=== PATIENT | female | born 1990 | race Caucasian/White ===

== ENCOUNTER 2017-12-16 15:38 | Emergency (ER) | payer MEDICAID ==
[2017-12-16 16:02] VITALS: BP 125/80; PULSE 79; RESP 18; TEMP 97.5; O2SAT 99
[2017-12-16 17:45] LABS: AUTOMATED NEUTROPHIL # 2.2 TH/MM3 (1.8-7.7); BASOPHIL % 0.7 % (0.0-2.0); EOSINOPHIL # 0.1 TH/MM3 (0-0.4); EOSINOPHIL % 3.4 % (0.0-4.0); HEMATOCRIT 42.1 % (35.0-46.0); HEMOGLOBIN 14.3 GM/DL (11.6-15.3); LYMPH % 36.3 % (9.0-44.0); LYMPHOCYTE # 1.6 TH/MM3 (1.0-4.8); MEAN CELL VOLUME 90.9 FL (80.0-100.0); MEAN CORPUSCULAR HEMOGLOBIN 30.9 PG (27.0-34.0); MEAN PLATELET VOLUME 8.9 FL (7.0-11.0); MONO % 8.1 % (0.0-8.0); MONOCYTE # 0.4 TH/MM3 (0-0.9); NEUT % 51.5 % (16.0-70.0); PLATELET COUNT 197 TH/MM3 (150-450); RED BLOOD COUNT 4.63 MIL/MM3 (4.00-5.30); RED CELL DISTRIBUTION WIDTH 13.8 % (11.6-17.2); WHITE BLOOD COUNT 4.3 TH/MM3 (4.0-11.0)
[2017-12-16 18:10] LABS: BILIRUBIN, URINE NEG (NEG); BLOOD, URINE MOD (NEG); GLUCOSE,URINE NEG (NEG); KETONE, URINE TRACE mg/dL (NEG); MUCUS URINE MANY /lpf (OCC); NITRITE,URINE NEG (NEG); SQUAMOUS EPITHELIAL CELL URINE 12 /hpf (0-5); URINE COLOR YELLOW (YELLW/STRAW); URINE LEUKOCYTE ESTERASE TRACE (NEG)
[2017-12-16 18:18] LABS: ALBUMIN 4.2 GM/DL (3.4-5.0); ALT (GPT) 14 U/L (10-53); AST (GOT) 12 U/L (15-37); BICARBONATE 28.3 MEQ/L (21.0-32.0); BLOOD UREA NITROGEN 9 MG/DL (7-18); CALCIUM 8.9 MG/DL (8.5-10.1); CHLORIDE 106 MEQ/L (98-107); CREATININE 0.81 MG/DL (0.50-1.00); GLOMERULAR FILTRATION RATE 86 ML/MIN (>89); GLUCOSE,RANDOM 83 MG/DL (74-106); SODIUM (NA) 141 MEQ/L (136-145)
[2017-12-16 18:22] LABS: ALKALINE PHOSPHATASE 71 U/L (45-117); TOTAL BILIRUBIN ADULT 0.3 MG/DL (0.2-1.0); TOTAL PROTEIN 7.7 GM/DL (6.4-8.2)
[2017-12-16] MEDS ORDERED: ZOFR4TAB3 SL (20:51)
[2017-12-16] MEDS ORDERED: NORC5TAB PO (20:51)
--- NOTE | 2017-12-16 20:52 | PD ---
HPI Chief Complaint: Medical Clearance Time Seen by Provider: 20:41 Travel History International Travel<30 days: No Contact w/Intl Traveler<30days: No Traveled to known affect area: No History of Present Illness HPI 27-year-old female complains of vaginal bleeding. Patient is 3 para 2. Last menstruation period November 13. Patient started having vaginal bleeding 2 days ago. Patient was seen at [facility] 2 days ago and was diagnosed with miscarriage. Patient was advised to follow with local physician. Patient states that she still has persistent vaginal bleeding since the visit. Patient is not sure of her blood type. Patient was not given program at [facility]. Patient states that she does not have any body locally for follow-up. Patient denies any headache. Patient denies any chest pain or shortness of breath. Patient denies any abdominal pelvic pain. Patient denies any fever chills. PFSH Past Medical History Anemia: Yes ?: Not LMP: 11/13/17 Past Surgical History Section: Yes Social History Alcohol Use: Yes (rarely) Tobacco Use: Yes Substance Use: No Allergies-Medications (Allergen,Severity, Reaction): Coded Allergies: sumatriptan (Verified Allergy, Unknown, 12/16/17) Reported Meds & Prescriptions Reported Meds & Active Scripts Active Reported Leland (Hydrocodone-Acetaminophen) 5 Mg-325 Mg Tab 1 Tab PO Q6H PRN Zofran Odt (Ondansetron Odt) 4 Mg Tab 4 Mg SL DIRECTED Review of Systems General / Constitutional: No: Fever Eyes: No: Visual changes HENT: No: Headaches Cardiovascular: No: Chest Pain or Discomfort Respiratory: No: Shortness of Breath Gastrointestinal: No: Abdominal Pain Genitourinary: Positive: Vaginal Bleeding, No: Dysuria Musculoskeletal: No: Pain Skin: No Rash Neurologic: No: Weakness Psychiatric: No: Depression Endocrine: No: Polydipsia Hematologic/Lymphatic: No: Easy Bruising Physical Exam Narrative GENERAL: Well-nourished, well-developed patient. SKIN: Focused skin assessment warm/dry. HEAD: Normocephalic. EYES: No scleral icterus. No injection or drainage. NECK: Supple, trachea midline. No JVD or lymphadenopathy. CARDIOVASCULAR: Regular rate and rhythm without murmurs, gallops, or rubs. RESPIRATORY: Breath sounds equal bilaterally. No accessory muscle use. GASTROINTESTINAL: Abdomen soft, non-tender, nondistended. MUSCULOSKELETAL: No cyanosis, or edema. BACK: Nontender without obvious deformity. No CVA tenderness. [employer]ANT [employer] exam: Cervix long thick and closed. Small amount of blood in the vaginal vault. No cervical motion tenderness. Uterus is nonenlarged and nontender on palpation. No adnexal mass or tenderness. Data Data Last Documented VS Vital Signs Date Time Temp Pulse Resp B/P (MAP) Pulse Ox O2 Delivery O2 Flow Rate FiO2 12/16/17 16:02 97.5 79 18 125/80 (95) 99 Orders Orders Beta Hcg (Quant/Titer) (12/16/17 16:05) Complete Blood Count With Diff (12/16/17 16:05) Comprehensive Metabolic Panel (12/16/17 16:05) Complete Rh (12/16/17 16:05) Urinalysis - C+S If Indicated (12/16/17 16:05) Us Pelvis (Ques Pr/Ect)W Trans (12/16/17 ) Labs Laboratory Tests Test 12/16/17 17:11 White Blood Count 4.3 TH/MM3 Red Blood Count 4.63 MIL/MM3 Hemoglobin 14.3 GM/DL Hematocrit 42.1 % Mean Corpuscular Volume 90.9 FL Mean Corpuscular Hemoglobin 30.9 PG Mean Corpuscular Hemoglobin Concent 34.0 % Red Cell Distribution Width 13.8 % Platelet Count 197 TH/MM3 Mean Platelet Volume 8.9 FL Neutrophils (%) (Auto) 51.5 % Lymphocytes (%) (Auto) 36.3 % Monocytes (%) (Auto) 8.1 % Eosinophils (%) (Auto) 3.4 % Basophils (%) (Auto) 0.7 % Neutrophils # (Auto) 2.2 TH/MM3 Lymphocytes # (Auto) 1.6 TH/MM3 Monocytes # (Auto) 0.4 TH/MM3 Eosinophils # (Auto) 0.1 TH/MM3 Basophils # (Auto) 0.0 TH/MM3 CBC Comment DIFF FINAL Differential Comment Urine Color YELLOW Urine Turbidity HAZY Urine pH 6.0 Urine Specific Pillow 1.036 Urine Protein 30 mg/dL Urine Glucose (UA) NEG mg/dL Urine Ketones TRACE mg/dL Urine Occult Blood MOD Urine Nitrite NEG Urine Bilirubin NEG Urine Urobilinogen 2.0 MG/DL Urine Leukocyte Esterase TRACE Urine RBC /hpf Urine WBC 7 /hpf Urine Squamous Epithelial Cells 12 /hpf Urine Mucus MANY /lpf Microscopic Urinalysis Comment CULT NOT INDICATED Blood Urea Nitrogen 9 MG/DL Creatinine 0.81 MG/DL Random Glucose 83 MG/DL Total Protein 7.7 GM/DL Albumin 4.2 GM/DL Calcium Level 8.9 MG/DL Alkaline Phosphatase 71 U/L Aspartate Amino Transf (AST/SGOT) 12 U/L Alanine Aminotransferase (ALT/SGPT) 14 U/L Total Bilirubin 0.3 MG/DL Sodium Level 141 MEQ/L Potassium Level 3.8 MEQ/L Chloride Level 106 MEQ/L Carbon Dioxide Level 28.3 MEQ/L Anion Gap 7 MEQ/L Estimat Glomerular Filtration Rate 86 ML/MIN Human Chorionic Gonadotropin, Quant 6 MIU/ML MDM Medical Decision Making Medical Screen Exam Complete: Yes Emergency Medical Condition: Yes Differential Diagnosis Differential diagnosis including incomplete AB, complete AB, ectopic . Narrative Course 27-year-old female with vaginal bleeding. History of miscarriage. Blood type is O+. CBC within normal limits. Beta-hCG 6. Diagnosis Primary Impression: Complete Patient Instructions: General Instructions Additional Instructions: Advised vitamins with iron. Follow-up with local ophthalmic technologist. Return as needed. Med/Other Pt SpecificInfo: No Meds Exist/No RX given Disposition: 01 DISCHARGE HOME Condition: Stable Dinesh Guevara MD Dec 16, 2017 20:52
--- NOTE | 2017-12-16 21:04 | RADRPT ---
EXAM DATE/TIME: 12/16/2017 19:30 [facility] COMPARISON: No previous studies available for comparison. INDICATIONS : Pelvic pain and bleeding with . LAB(S): Beta-hC MEDICAL HISTORY : . SURGICAL HISTORY : section. ENCOUNTER: Initial ACUITY: 3 days PAIN SCORE: 6/10 LOCATION: Bilateral pelvis MEASUREMENTS: UTERUS: 10.0 x 6.3 x 4.4 cm ENDOMETRIAL STRIPE: 9 mm RIGHT OVARY: 3.3 x 2.3 x 1.4 cm LEFT OVARY: 3.0 x 1.8 x 1.5 cm FREE FLUID: No CROWN RUMP LENGTH: Non visualized. = WKS DAYS FHR: Non visualized. BPM FINDINGS: Small nabothian cysts in the cervix. Uterus unremarkable. No gestational sac or evidence for intraute rine . There is a trace fluid in the endometrial cavity. Ovaries unremarkable. No free fluid . CONCLUSION: 1. No sonographic evidence for an intrauterine . Trace fluid in the endometrial cavity. Bean Coleman MD on December 16, 2017 at 21:00 Board Certified Radiologist. This report was verified electronically.
== END 2017-12-16 21:38 | disposition home or self-care (01) ==
LOC: NEPD 15:38
DX: O03.9 Complete or unspecified spontaneous abortion without complication (principal); Z72.0 Tobacco use
CPT/HCPCS: 76700; 76817; 80053; 81001; 84702; 85025; 86901

== ENCOUNTER 2018-03-10 02:03 | Emergency (ER) | payer MEDICAID ==
[~2018-03-10] VITALS: Ht 165.1 cm; Wt 65.0 kg
[~2018-03-10 02:03] MED LIST: NORC5TAB PO; ZOFR4TAB3 SL
[2018-03-10 02:06] VITALS: BP 110/60; PULSE 80; RESP 16; TEMP 97.9; O2SAT 99
[2018-03-10] MEDS ORDERED: CYCL5TAB PO (02:33)
[2018-03-10] MEDS ORDERED: ACETAMINOPHEN/HYDROcodone 325 MG/5 MG TAB PO ONE (02:45)
[2018-03-10] MEDS ORDERED: DICL75TA PO (02:45)
[2018-03-10] MEDS ORDERED: NAPROXEN 500 MG TAB PO ONE (02:45)
--- NOTE | 2018-03-10 02:52 | PD ---
HPI Chief Complaint: Back/ Neck Pain or Injury Time Seen by Provider: 02:39 Travel History International Travel<30 days: No Contact w/Intl Traveler<30days: No Traveled to known affect area: No History of Present Illness HPI 28-year-old white female presents emergency department with complaints of back pain for the past week. She states that she works as a compliance program manager at [employer] and has not been able to see her doctor. She has a history of scoliosis and chronic back pain. She takes cyclobenzaprine. She denies any acute injury. She denies any numbness, tingling or weakness. Pain is worse with bending and movement. Worse with standing. Some relief with remaining still. She denies any acute bowel or bladder changes. [facility] Past Medical History Narrative Medical Chronic back pain, migraines, scoliosis Anemia: Yes Diminished Hearing: No Tetanus Vaccination: < 5 Years Influenza Vaccination: No ?: Not LMP: JUST ENDED Past Surgical History Surgical History: No Previous Surgery Section: Yes Social History Alcohol Use: Yes (rarely) Tobacco Use: Yes Substance Use: No Allergies-Medications (Allergen,Severity, Reaction): Coded Allergies: sumatriptan (Verified Allergy, Unknown, 03/10/18) Reported Meds & Prescriptions Reported Meds & Active Scripts Active Diclofenac Sodium DR (Diclofenac Sodium) 75 Mg Tabdr 75 Mg PO BID Reported Flexeril (Cyclobenzaprine HCl) 5 Mg Tab 5 Mg PO TID Review of Systems General / Constitutional: No: Fever Eyes: No: Visual changes HENT: No: Headaches Cardiovascular: No: Chest Pain or Discomfort Respiratory: No: Shortness of Breath Gastrointestinal: No: Abdominal Pain Genitourinary: No: Dysuria Musculoskeletal: Positive: Arthralgias, Cramping, Pain Skin: No Rash Neurologic: No: Weakness Psychiatric: No: Depression Endocrine: No: Polydipsia Hematologic/Lymphatic: No: Easy Bruising Physical Exam Narrative GENERAL: Well-developed, well-nourished in no apparent distress. Nontoxic appearing. HEAD: Normocephalic, atraumatic. EYES: Pupils equal round and reactive. Extraocular motions intact. No scleral icterus. No injection or drainage. ENT: Nose clear. Throat without erythema, tonsillar hypertrophy or exudate. Uvula midline. Airway patent. NECK: Trachea midline. Supple, nontender, moves head freely. No central bony tenderness or spasm. CARDIOVASCULAR: Regular rate and rhythm without murmurs, gallops, or rubs. RESPIRATORY: Clear to auscultation. Breath sounds equal bilaterally. No wheezes , rales, or rhonchi. GASTROINTESTINAL: Abdomen soft, non-tender, nondistended. No hepato-splenomegaly , or palpable masses. No guarding. EXTREMITIES: No clubbing, cyanosis, or edema. No joint tenderness. BACK: No central bony tenderness to palpation of the dorsal lumbar spine. Patient complains of right parathoracic upper lumbar tenderness. Decreased forward flexion to 80. No saddle anesthesia. Heel and toe stand. Without deformity. No flank tenderness. NEUROLOGICAL: Awake, alert and oriented x 3 .Cranial nerves grossly intact. Motor and sensory grossly within normal limits. Normal speech. Data Data Last Documented VS Vital Signs Date Time Temp Pulse Resp B/P (MAP) Pulse Ox O2 Delivery O2 Flow Rate FiO2 03/10/18 02:06 97.9 80 16 110/60 (77) 99 Orders Orders Naproxen (Naprosyn) (03/10/18 02:45) Acetamin-Hydrocod 325-5 Mg ([place] 5-325 (03/10/18 02:45) Ed Discharge Order (03/10/18 02:45) MDM Medical Decision Making Medical Screen Exam Complete: Yes Emergency Medical Condition: Yes Medical Record Reviewed: Yes Differential Diagnosis MDM: High Differential diagnoses: AAA,Fracture, sprain, strain, HNP, nerve or vascular injury, epidural abscess, pilonidal cyst, pyelonephritis, UTI, nephrolithiasis, ureterolithiasis Narrative Course Patient has musculoskeletal back pain. She will be instructed to increase her cyclobenzaprine. She is given [place] 5 mg p.o. and Naprosyn 500 mg p.o. Diagnosis Primary Impression: Acute exacerbation of chronic low back pain Patient Instructions: General Instructions, Narcotic given in the ED Departure Forms: Tests/Procedures, Work Release Special Instructions: No work 3 days. Additional Instructions: Rest. Ice for the next 3 days followed by heat . Diclofenac. Increase her cyclobenzaprine to 10 mg 3 times a day. Follow-up with a primary care doctor in one week. Return to the ER for emergencies. Med/Other Pt SpecificInfo: Prescription(s) given Scripts Diclofenac Sodium DR (Diclofenac Sodium DR) 75 Mg Tabdr 75 MG PO BID, #20 TAB 0 Refills Prov: Reyes Kasier MD 03/10/18 Disposition: 01 DISCHARGE HOME Condition: Stable Bean Chapa Mar 10, 2018 02:52
== END 2018-03-10 03:06 | disposition home or self-care (01) ==
LOC: NEPD 02:03
DX: G89.29 Other chronic pain (principal); M54.5 Low back pain; M41.9 Scoliosis, unspecified; D64.9 Anemia, unspecified; Z72.0 Tobacco use
CPT/HCPCS: 99283